=== PATIENT | female | born 1935 | race Caucasian/White ===

== ENCOUNTER 2017-06-22 09:50 | Outpatient (CLI) | payer MEDICARE, OTHER | END 2017-06-22 09:51 | disposition home or self-care (01) | LOC: BICRAD 09:50 | PROVIDERS: ATTEND Internal Medicine | DX: R05 Cough (principal) | CPT/HCPCS: 71046 ==

== ENCOUNTER 2018-08-08 13:34 | Outpatient (CLI) | payer MEDICARE, OTHER ==
--- NOTE | 2018-08-08 16:02 | RAD ---
CHEST 2 VIEWS: Date: 08/08/18 HISTORY: Chest pain. COMPARISON: Radiograph dated 06/22/17. FINDINGS: There is some scarring of the left lung base. Multiple midline sternotomy wires. Prosthetic aortic va lve is present. Dense calcifications of the aorta. No confluent air space consolidation, pneumothorax, or effusion. IMPRESSION: No acute intrathoracic abnormality. Chronic findings. POS: [facility]
== END 2018-08-08 13:35 | disposition home or self-care (01) ==
LOC: BICRAD 13:34
PROVIDERS: ATTEND Internal Medicine
DX: R05 Cough (principal); I70.0 Atherosclerosis of aorta; J98.4 Other disorders of lung; Z95.2 Presence of prosthetic heart valve
CPT/HCPCS: 71046

== ENCOUNTER 2018-08-15 10:54 | Emergency (ER) | payer MEDICARE, OTHER ==
[2018-08-15] MEDS ORDERED: Ondansetron PF 4 MG/2 ML Vial ONE (12:03)
[2018-08-15] MEDS ORDERED: Morphine 2 MG/ML SYRINGE ONE (12:04)
[2018-08-15 12:15] LABS: #Eosinphils 0.1 thou/uL (0.0-0.7); #Lymphocytes 1.4 thou/uL (1.20-3.40); #Monocytes 0.6 thou/uL (0.11-0.59); #Neutrophils 4.3 thou/uL (1.40-6.50); %Basophils 0.2 % (0.0-1.0); %Eosinophils 1.9 % (0.0-10.0); %Lymphocytes 21.1 % (21.0-51.0); %Monocytes 9.5 % (0.0-10.0); %Neutrophils 67.2 % (42.0-75.0); Hemoglobin 14.7 g/dL (12.0-16.0); Mean Corpuscular HGB CONC 32.7 g/dL (32.0-36.0); Mean Corpuscular Hemoglobin 32.7 pg (27.0-31.0); Platelet Count 240 thou/uL (130-400); RBC Distribution Width 12.1 % (11.5-14.5); Red Blood Cell (RBC) Count 4.51 mill/uL (4.20-5.40); White Blood Cell (WBC) Count 6.4 thou/uL (4.8-10.8)
[2018-08-15 12:20] LABS: PTT 26.9 SEC (22.9-36.1)
[2018-08-15 12:45] LABS: ALT (SGPT) 14 U/L (8-55); AST (SGOT) 22 U/L (5-34); Albumin 3.8 g/dL (3.4-4.8); Alkaline Phosphatase 84 U/L (40-150); Anion Gap 14 mmol/L (10-20); BUN (Urea Nitrogen) 17 mg/dL (9.8-20.1); Bilirubin, Total 0.4 mg/dL (0.2-1.2); Calc. Creatinine Clearance 0 mL/min (70-130); Carbon Dioxide 26 mmol/L (23-31); Chloride 106 mmol/L (98-107); Estimated GFR-MDRD 62; Globulin 3.5 g/dL (2.4-3.5); Glucose 101 mg/dL (83-110); Potassium 4.5 mmol/L (3.5-5.1); Protein, Total 7.3 g/dL (6.0-8.3); Sodium 141 mmol/L (136-145)
--- NOTE | 2018-08-15 13:31 | ULT ---
VENOUS DOPPLER ULTRASOUND OF THE LEFT UPPER EXTREMITY: Date: 08/15/18 HISTORY: Left upper extremity pain. TECHNIQUE: Gomez scale ultrasound with color flow and spectral Doppler imaging of the deep venous system of the l eft upper extremity was performed. FINDINGS: There is good flow, normal spectral waveforms, and compression in the deep veins of the left upper ex tremity, including the internal jugular, subclavian, axillary, brachial, radial, ulnar, basilic, and cephalic veins. IMPRESSION: No evidence of deep venous thrombosis in the left upper extremity. POS: [facility]
== END 2018-08-15 15:02 | disposition home or self-care (01) ==
LOC: ERS 10:54
DX: R60.0 Localized edema (principal); E78.5 Hyperlipidemia, unspecified; Z79.899 Other long term (current) drug therapy
CPT/HCPCS: 80053; 85025; 85610; 85730; 96374; 96375; J2270; J2405

== ENCOUNTER 2018-10-13 10:43 | Outpatient (CLI) | payer MEDICARE, OTHER ==
--- NOTE | 2018-10-13 11:28 | RAD ---
CERVICAL SPINE SERIES 3 VIEWS: Date: 10/13/18 HISTORY: Neck pain. FINDINGS: Vertebral bodies are normal in height. There is marked degenerative facet change along the course of the spine. There is some moderate disc narrowing at C5-6. No soft tissue swelling. IMPRESSION: Moderate arthritic changes. Changes are mainly related to lower cervical spine and fairly pronounced degenerative facet changes. POS: [facility]
== END 2018-10-13 10:44 | disposition home or self-care (01) ==
LOC: BICRAD 10:43
PROVIDERS: ATTEND Internal Medicine
DX: M54.2 Cervicalgia (principal); M47.812 Spondylosis without myelopathy or radiculopathy, cervical region
CPT/HCPCS: 72040

== ENCOUNTER 2019-03-04 09:56 | Emergency (ER) | payer MEDICARE, OTHER ==
--- NOTE | 2019-03-04 10:21 | RAD ---
EXAM: Two views chest PROVIDED CLINICAL HISTORY: Cough COMPARISON: 08/08/2018 FINDINGS: Heart size appears normal. Median sternotomy changes, vascular calcification and prosthetic cardiac v alve are noted. Lungs appear free of significant opacity. No pleural fluid or pneumothorax apparent. IMPRESSION: No evidence for an acute cardiopulmonary process.
== END 2019-03-04 12:45 | disposition home or self-care (01) ==
LOC: ERS 09:56
DX: R06.2 Wheezing (principal); R05 Cough; I25.10 Atherosclerotic heart disease of native coronary artery without angina pectoris; E78.5 Hyperlipidemia, unspecified; E78.00 Pure hypercholesterolemia, unspecified; Z79.899 Other long term (current) drug therapy
CPT/HCPCS: 71046; 93005; 94640; J7620

== ENCOUNTER 2021-08-11 11:06 | Outpatient (CLI) | payer MEDICARE, OTHER | END 2021-08-11 11:07 | disposition home or self-care (01) | LOC: BICRAD 11:06 | PROVIDERS: ATTEND Orthopaedic Surgery | DX: M75.42 Impingement syndrome of left shoulder (principal); M19.011 Primary osteoarthritis, right shoulder ==

== ENCOUNTER 2023-06-02 12:12 | Emergency (ER) | payer OTHER, MEDICARE | END 2023-06-02 14:35 | disposition home or self-care (01) | LOC: ERS 12:12 | DX: S32.16XA Type 3 fracture of sacrum, initial encounter for closed fracture (principal); I25.10 Atherosclerotic heart disease of native coronary artery without angina pectoris; E78.00 Pure hypercholesterolemia, unspecified; W19.XXXA Unspecified fall, initial encounter; Z79.899 Other long term (current) drug therapy | CPT/HCPCS: 72125; 72128; 72131 ==